=== PATIENT | female | born 1970 | race African-American/Black ===

== ENCOUNTER → 2017-10-21 07:35 | Outpatient (CLI) | payer OTHER | END | disposition home or self-care (01) | LOC: D.US 07:35 | DX: R10.9 Unspecified abdominal pain (principal) ==

== ENCOUNTER 2019-06-30 01:04 | Emergency (ER) | payer OTHER ==
[~2019-06-30] VITALS: Ht 157.5 cm; Wt 100.0 kg
[2019-06-30 01:10] VITALS: Ht 157.5 cm; Wt 100.0 kg
[2019-06-30] MEDS ORDERED: LISINOPRIL10 MG (01:11)
[2019-06-30 01:33] LABS: BASOPHILS 0.1 % (0-2); EOSINOPHILS 1.7 % (0-7); HEMATOCRIT 37.5 % (36.0-48.0); HEMOGLOBIN 12.6 g/dL (12-16); IMMATURE GRANULOCYTES 0.2 % (0-5); LYMPHOCYTES 24.5 % (15-50); MCH 31.4 pg (26.0-34.0); MCHC 33.6 g/dL (31.0-37.0); MCV 93.5 fL (80.0-100.0); MEAN PLATELET VOLUME 9.6 fL (7.4-10.4); MONOCYTES 8.7 % (2-11); NEUTROPHILS 64.8 % (40-80); PLATELET COUNT 314 10x3/uL (130-400); RBC 4.01 10x6/uL (4.00-5.40); RDW 13.6 % (11.5-14.5); WBC 9.8 10x3/uL (4.8-10.8)
[2019-06-30 01:41] LABS: CALC OSMOLALITY 282 mosm/kg (275-300); CALCIUM 8.5 mg/dL (8.5-10.1); CHLORIDE - SERUM 104 mmol/L (98-107); CREATININE - SERUM 1.1 mg/dL (0.6-1.3); GLUCOSE 104 mg/dL (74-106); POTASSIUM - SERUM 3.4 mmol/L (3.5-5.1); SODIUM 142 mmol/L (136-145); UREA NITROGEN 13 mg/dL (7-18); eGFR NON AFRICAN AMERICAN 56 mL/min (90-120)
[2019-06-30 01:59] LABS: ALBUMIN 3.4 g/dL (3.4-5.0); ALKALINE PHOSPHATASE 64 U/L (46-116); ALT (SGPT) 21 U/L (10-68); BILIRUBIN - TOTAL 0.13 mg/dL (0.2-1.3); CKMB 0.6 U/L (0.0-3.6); CREATINE KINASE 96 UL (21-215); MAGNESIUM - SERUM 1.9 mg/dL (1.8-2.4); PROTEIN - SERUM 7.4 g/dL (6.4-8.2)
[2019-06-30 02:00] LABS: TROPONIN-I < 0.017 ng/mL (0.000-0.060)
[2019-06-30 03:39] VITALS: BP 124/76
== END 2019-06-30 03:35 | disposition home or self-care (01) ==
LOC: D.ER 01:04
PROVIDERS: Family Medicine
DX: F41.9 Anxiety disorder, unspecified (principal); R00.2 Palpitations; I10 Essential (primary) hypertension